=== PATIENT | male | born 1980 | race Caucasian/White ===

== ENCOUNTER 2022-09-10 10:54 | Outpatient (CLI) | payer OTHER, SELFPAY | END 2022-09-10 10:55 | disposition home or self-care (01) | PROVIDERS: PCP Internal Medicine; Visit Provider Internal Medicine | DX: Z00.00 Encounter for general adult medical examination without abnormal findings (principal); I10 Essential (primary) hypertension; Z13.6 Encounter for screening for cardiovascular disorders | CPT/HCPCS: 80053; 80061 ==

== ENCOUNTER 2023-04-15 07:00 | Outpatient (CLI) | payer OTHER, SELFPAY ==
--- NOTE | 2023-04-15 07:15 | CRLHL7_ITS ---
For Patients: As a result of the Century Cures Act, medical imaging exams and procedure reports are released immediately into your electronic medical record. You may view this report before your referring provider. If you have questions, please contact your health care provider. INDICATION: Low back pain. Left leg/hip pain. TECHNIQUE : Lumbar spine MRI without contrast. The following sequences were obtained: Sagittal T1, T2 weighted and STIR sequences. Axial T1 and T2 weighted sequences. COMPARISON: None. FINDINGS : Five lumbar type vertebral bodies, with the last fully formed disc space designated as L5-S1. Normal lumbar lordotic curve. No recent compression fracture or marrow replacing process. Lower cord/conus signal is normal. The conus terminates at a normal location. No intradural lesion. No extraspinal soft tissue abnormalities. Discs/Endplates: L5-S1 disc desiccation. The remaining discs are within normal limits. Findings at individual levels as follows: T11-12: Trace anterolisthesis. Bilateral low-grade facet arthrosis. No spinal canal or neural foraminal stenosis. T12-L1: No spinal canal or neural foraminal stenosis. L1-2: No spinal canal or neural foraminal stenosis. L2-3: Minimal disc bulge. No spinal canal or neural foraminal stenosis. L3-4: Minimal disc bulge. No spinal canal or neural foraminal stenosis. L4-5: Mild disc bulge and low-grade bilateral facet arthrosis. No spinal canal or neural foraminal stenosis. L5-S1: 4 millimeters anterolisthesis. Superior disc unroofing and superimposed small left central protrusion with annular fissure. High-grade bilateral facet arthrosis with a large associated synovial cyst protruding into the left subarticular recess and impinging the traversing left S1 nerve root. It measures up to 7 x 10 millimeters in axial plane and 11 millimeters in craniocaudal plane. Mild left and moderate right oblique neural foraminal stenosis. Overall mild spinal canal stenosis. Diffuse bone marrow edema throughout the left-sided L5 posterior elements and sacrum, consistent with active degenerative inflammation. Imaged SI joints: Minimal arthrosis. Imaged sacrum: Within normal limits. IMPRESSION: 1. At L5-S1, mild grade 1 anterolisthesis and high-grade bilateral facet arthrosis. Left-sided large synovial cyst protruding into the subarticular recess impinges the traversing left S1 nerve root. Diffuse bone marrow edema throughout the left-sided L5 posterior elements and sacrum, consistent with active degenerative inflammation. 2. Minor spondylosis elsewhere without significant spinal canal/neural foraminal stenosis or neural impingement. Dictated by Tanvir Amato MD @ 04/15/2023 10:48:43 AM (Electronically Signed)
== END 2023-04-15 07:01 | disposition home or self-care (01) ==
LOC: MRI 07:01
PROVIDERS: PCP Internal Medicine; Visit Provider Internal Medicine
DX: M54.50 Low back pain, unspecified (principal); M51.26 Other intervertebral disc displacement, lumbar region; M47.896 Other spondylosis, lumbar region; M25.552 Pain in left hip; M79.605 Pain in left leg; M54.30 Sciatica, unspecified side
CPT/HCPCS: 72148

== ENCOUNTER 2023-05-03 01:19 | Emergency (ER) | payer OTHER, SELFPAY ==
[2023-05-03 01:32] VITALS: BP 180/123; PULSE 69; RESP 20; TEMP 36.3; O2SAT 99
--- NOTE | 2023-05-03 01:49 | ED_ITS ---
HPI - Back Pain/Injury General Chief Complaint: Back Injury/Pain Stated Complaint: sciatica pain Time Seen by Provider: 05/03/23 01:28 History of Present Illness HPI Narrative: Patient is a 42-year-old gentleman was seen in the clinic in the past with severe back pain. I did do an MRI and he does have significant degeneration with S1 nerve impingement. I sent him to Sports Medicine they are trying 6 weeks of conservative therapy however the patient is having refractory symptoms although he is on [place] plus anti-inflammatories plus symptomatic treatment. He has left-sided radiculopathy no bowel or bladder symptoms no fevers no chills. Patient states the pain is so severe that he cannot get comfortable and is miserable. The pain is in the low back with radiation on the left leg. It is sharp. Related Data Previous Rx's Medication Instructions Recorded lansoprazole 30 mg capsule,delayed 30 mg PO QDAY gerd #90 caps 03/03/23 release amlodipine 5 mg tablet (Norvasc) 5 mg PO QDAY Hypertension #30 tabs 04/02/23 prednisone 20 mg tablet 20 mg PO BID Sciatica #10 tabs 04/15/23 hydrocodone 5 mg-acetaminophen 325 1 tab PO Q8H PRN pain #30 tabs 04/18/23 mg tablet methylphenidate HCl 54 mg 54 mg PO QAM ADHD #30 tabs 04/28/23 tablet,extended release 24 hr Allergies Allergy/AdvReac Type Severity Reaction Status Date / Time No Known Allergies Allergy Unknown Unknown Verified 04/02/23 12:41 Review of Systems Status of ROS: Reports: 10 or more systems reviewed and unremarkable except as noted in History and below [facility] Medical History Sciatica ?M54.30 - Sciatica, unspecified side (ICD-10) Bronchitis ?J40 - Bronchitis, not specified as acute or chronic (ICD-10) Surgical History History of appendectomy ?Z90.49 - Acquired absence of other specified parts of digestive tract (ICD- 10) Family History Other Colon cancer Social History Smoking Status: Current some day smoker What tobacco products do you use: cigarettes Do you use any of these nicotine containing products: None Second hand tobacco smoke exposure: No Non-prescribed substance use: denies use Little interest or pleasure in doing things: more than half the days Feeling down, depressed, or hopeless: several days service: No Exam Narrative: Exam Narrative: EXAM GENERAL: Patient appears very uncomfortable EYES: No scleral icterus. LYMPH: No supraclavicular or cervical lymphadenopathy. SKIN: Visible skin seen during exam normal or with benign process only. EXT: No dependent lower extremity pedal edema. HEART: Regular rate and rhythm with no murmurs, rubs, or gallops. LUNGS: Clear to auscultation bilaterally with no crackles or wheezes. ABD: Soft, non tender, non distended. PSYCH: Good eye contact, speech is not pressured. Const: Vital Signs, click to edit/add: Vital Signs - 24 hr 05/03/23 01:32 Temperature 97.4 F L Pulse Rate [Left P ulse Oximeter] 69 Respiratory Rate 20 Blood Pressure [Ri ght Upper Arm] 180/123 H Pulse Oximetry 99 Oxygen Delivery Me thod Room Air Course Course ED Course: Patient seen examined. Outpatient course reviewed. Vital Signs Vital signs: Initial Vital Signs Temperature 97.4 F L 05/03/23 01:32 Temperature Source Temporal Artery Scan 05/03/23 01:32 Pulse Rate 69 05/03/23 01:32 Pulse Rhythm Regular 05/03/23 01:32 Respiratory Rate 20 05/03/23 01:32 Blood Pressure 180/123 H 05/03/23 01:32 Blood Pressure Mean 142 H 05/03/23 01:32 Blood Pressure Position Supine 05/03/23 01:32 Pulse Oximetry 99 05/03/23 01:32 Oxygen Delivery Method Room Air 05/03/23 01:32 Vital Signs Temperature 97.4 F L 05/03/23 01:32 Pulse Rate 69 05/03/23 01:32 Respiratory Rate 20 05/03/23 01:32 Blood Pressure 180/123 H 05/03/23 01:32 Pulse Oximetry 99 05/03/23 01:32 Oxygen Delivery Method Room Air 05/03/23 01:32 Temperature 97.4 F L 05/03/23 01:32 Pulse Rate 69 05/03/23 01:32 Respiratory Rate 20 05/03/23 01:32 Blood Pressure 180/123 H 05/03/23 01:32 Pulse Oximetry 99 05/03/23 01:32 Oxygen Delivery Method Room Air 05/03/23 01:32 MDM - Back Pain/Injury MDM Narrative Medical decision making narrative: As the patient is my primary care patient I did prescribe oxycodone in the short term over the weekend try to get him comfortable. On Friday will plan to get him set up a [facility] is I do think we are failing conservative treatment. I have considered other etiologies such as muscle sprain strain fracture abscess neuro degenerative disease. Discharge Plan Discharge Clinical Impression: Sciatica Patient Disposition: Home, Self-Care Condition: Stable Instructions: Sciatica (ED) Additional Instructions: Replace [place] with oxycodone Continue with the remainder of your medications and treatment I will call you on Friday and will make a plan to get you in to [facility] Activity Level: No Restrictions Discharge Diet: Regular Prescriptions: No Action amlodipine [Norvasc] 5 mg tablet 5 mg PO QDAY Qty: 30 3RF lansoprazole 30 mg capsule,delayed release(DR/EC) 30 mg PO QDAY Qty: 90 1RF prednisone 20 mg tablet 20 mg PO BID Qty: 10 0RF hydrocodone-acetaminophen 5-325 mg tablet 1 tab PO Q8H PRN (Reason: pain) Qty: 30 0RF methylphenidate HCl 54 mg tablet extended release 24hr 54 mg PO QAM Qty: 30 0RF Follow Up/Referrals: Vernon Castro MD [Primary Care Provider] - Stand Alone Forms: [employer] Info Instructions
== END 2023-05-03 02:00 | disposition home or self-care (01) ==
PROVIDERS: Emergency Provider Internal Medicine; PCP Internal Medicine
DX: M54.32 Sciatica, left side (principal)
CPT/HCPCS: 99283

== ENCOUNTER 2023-05-05 11:17 | Emergency (ER) | payer OTHER, SELFPAY ==
[2023-05-05 11:30] VITALS: BP 163/124; BP 166/127; PULSE 90; RESP 20; TEMP 36.9; O2SAT 96
--- NOTE | 2023-05-05 14:50 | ED_ITS ---
HPI - Back Pain/Injury General Chief Complaint: Back Injury/Pain Stated Complaint: right side sciatic pain Time Seen by Provider: 05/05/23 14:35 History of Present Illness HPI Narrative: This 42-year-old male comes in with severe low back pain radiating down his left leg. He has been seen recently regarding these same symptoms and did have an MRI a few days ago. This showed some impingement of nerves and apparently there is a cyst in his spinal area. Arrangements today were made for a follow-up appointment with [facility] and this will occur in 3 days. The patient comes in because of severe pain despite taking some pain medicines. He is not taking an anti-inflammatory medicine but has taken some oxycodone tablets without much relief. He also is taking gabapentin. He denies having any bowel or bladder changes and does not report any saddle anesthesia. Related Data Previous Rx's Medication Instructions Recorded lansoprazole 30 mg capsule,delayed 30 mg PO QDAY gerd #90 caps 03/03/23 release amlodipine 5 mg tablet (Norvasc) 5 mg PO QDAY Hypertension #30 tabs 04/02/23 prednisone 20 mg tablet 20 mg PO BID Sciatica #10 tabs 04/15/23 hydrocodone 5 mg-acetaminophen 325 1 tab PO Q8H PRN pain #30 tabs 04/18/23 mg tablet methylphenidate HCl 54 mg 54 mg PO QAM ADHD #30 tabs 04/28/23 tablet,extended release 24 hr cyclobenzaprine 10 mg tablet 10 mg PO TID #15 tabs 05/05/23 hydrocodone 5 mg-acetaminophen 325 1 tab PO Q4-6H PRN pain #24 tabs 05/05/23 mg tablet ketorolac 10 mg tablet 10 mg PO Q8H 5 days #15 tabs 05/05/23 methylprednisolone 4 mg tablets in See Rx Instructions PO .COMPLEX 05/05/23 a dose pack (Medrol (Efren)) #21 ea oxycodone 5 mg tablet 5 mg PO Q6H PRN pain #30 tabs 05/05/23 Allergies Allergy/AdvReac Type Severity Reaction Status Date / Time No Known Allergies Allergy Unknown Unknown Verified 04/02/23 12:41 Review of Systems Status of ROS: Reports: 10 or more systems reviewed and unremarkable except as noted in History and below Narrative: Constitutional: No fevers, no weight gain or loss. Eyes: No discharge. No vision changes. HENT: No congestion, no sore throat, no ear pain. Cardiovascular: No chest pain, no palpitations. Respiratory: No shortness of breath, no wheezes, no cough. Gastrointestinal: No abdominal pain, no vomiting, no diarrhea. Genitourinary: No dysuria, no hematuria. Musculoskeletal: Low back pain with radiating down the left leg. Skin: No rashes, no pruritis. Neurological: No dizziness, weakness, sensory change, speech change. Endo/Heme/Allergies: No bruising or bleeding. No polydipsia. Pysch: no suicidality, no anxiety, no insomnia. All other systems reviewed and are negative. [facility] Medical History Sciatica ?M54.30 - Sciatica, unspecified side (ICD-10) Bronchitis ?J40 - Bronchitis, not specified as acute or chronic (ICD-10) Surgical History History of appendectomy ?Z90.49 - Acquired absence of other specified parts of digestive tract (ICD- 10) Family History Other Colon cancer Social History Smoking Status: Current some day smoker What tobacco products do you use: cigarettes Do you use any of these nicotine containing products: None Second hand tobacco smoke exposure: No Non-prescribed substance use: denies use Little interest or pleasure in doing things: more than half the days Feeling down, depressed, or hopeless: several days service: No Exam Narrative: Exam Narrative: Constitutional: Well-developed, well-nourished, no acute distress. HEENT: Normocephalic, atraumatic. Neck: Normal range of motion. Nontender. Supple. Heart: Regular. No murmurs. Normal rate. Intact distal pulses. Lungs: Clear to auscultation. No chest discomfort. No wheezes, rhonchi, or rales. Abdomen: Normal bowel sounds. Nontender. No rebound tenderness. Genitalia: Deferred. Back: No midline tenderness. Normal range of motion. Extremities: No injury. Pain from the low back radiating down the left leg. Range of motion is intact. Skin: Intact. No rash. Warm. No erythema or pallor. Neurologic: No altered sensation. No weakness. Alert and oriented. Psychiatric: No suicidality. No anxiety or depression. No insomnia. Nursing notes and vitals signs are reviewed. Const: Vital Signs, click to edit/add: Vital Signs - 24 hr 05/05/23 11:30 Temperature 98.4 F Pulse Rate [Pulse Oximeter] 90 Respiratory Rate 20 Blood Pressure [Le ft Upper Arm] 163/124 H Blood Pressure [Ri ght Upper Arm] 166/127 H Pulse Oximetry 96 Oxygen Delivery Me thod Room Air Course Vital Signs Vital signs: Initial Vital Signs Temperature 98.4 F 05/05/23 11:30 Temperature Source Temporal Artery Scan 05/05/23 11:30 Pulse Rate 90 05/05/23 11:30 Pulse Rhythm Regular 05/05/23 11:30 Respiratory Rate 20 05/05/23 11:30 Blood Pressure 166/127 H 05/05/23 11:30 Blood Pressure Mean 140 H 05/05/23 11:30 Blood Pressure Position Sitting 05/05/23 11:30 Pulse Oximetry 96 05/05/23 11:30 Oxygen Delivery Method Room Air 05/05/23 11:30 Vital Signs Temperature 98.4 F 05/05/23 11:30 Pulse Rate 90 05/05/23 11:30 Respiratory Rate 20 05/05/23 11:30 Blood Pressure 166/127 H 05/05/23 11:30 Pulse Oximetry 96 05/05/23 11:30 Oxygen Delivery Method Room Air 05/05/23 11:30 Temperature 98.4 F 05/05/23 11:30 Pulse Rate 90 05/05/23 11:30 Respiratory Rate 20 05/05/23 11:30 Blood Pressure 166/127 H 05/05/23 11:30 Pulse Oximetry 96 05/05/23 11:30 Oxygen Delivery Method Room Air 05/05/23 11:30 MDM - Back Pain/Injury MDM Narrative Medical decision making narrative: This patient has a lumbar radiculopathy and MRI is showing evidence also of a cyst in the spinal area. He has a follow-up appointment with a spine clinic in 3 days. He does not have signs or symptoms of cauda equina syndrome and has not had any recent injury event or strenuous activity that mandates repeat studying today. The patient did receive an intramuscular injection of morphine 10 mg and prescriptions are provided for [place], Toradol, Medrol Dosepak, and Flexeril. I did describe signs and symptoms that would indicate a need for return and re- evaluation. Discharge Plan Discharge Clinical Impression: Lumbar radiculopathy Patient Disposition: Home, Self-Care Condition: Unchanged Additional Instructions: Take medications as needed and directed. Increase activity as tolerated. Follow up with Spine Clinic as scheduled or return if worsening. Prescriptions: New cyclobenzaprine 10 mg tablet 10 mg PO TID Qty: 15 0RF hydrocodone-acetaminophen 5-325 mg tablet 1 tab PO Q4-6H PRN (Reason: pain) Qty: 24 0RF ketorolac 10 mg tablet 10 mg PO Q8H 5 Days Qty: 15 0RF methylprednisolone [Medrol (Efren)] 4 mg tablets,dose pack See Rx Instructions .ROUTE .COMPLEX Qty: 21 0RF Rx Instructions: orally per package directions No Action amlodipine [Norvasc] 5 mg tablet 5 mg PO QDAY Qty: 30 3RF lansoprazole 30 mg capsule,delayed release(DR/EC) 30 mg PO QDAY Qty: 90 1RF prednisone 20 mg tablet 20 mg PO BID Qty: 10 0RF hydrocodone-acetaminophen 5-325 mg tablet 1 tab PO Q8H PRN (Reason: pain) Qty: 30 0RF methylphenidate HCl 54 mg tablet extended release 24hr 54 mg PO QAM Qty: 30 0RF oxycodone 5 mg tablet 5 mg PO Q6H PRN (Reason: pain) Qty: 30 0RF Follow Up/Referrals: Vernon Castro MD [Primary Care Provider] - Stand Alone Forms: [email or web address] Info Instructions
== END 2023-05-05 15:08 | disposition home or self-care (01) ==
LOC: ED 15:01
PROVIDERS: Emergency Provider Emergency Medicine Emergency Medical Services; PCP Internal Medicine
DX: M54.16 Radiculopathy, lumbar region (principal)
CPT/HCPCS: 99283; 99284

== ENCOUNTER 2023-07-11 15:56 | Outpatient (CLI) | payer BC, SELFPAY ==
--- OUTSIDE RECORDS SUMMARY | 2023-07-11 16:00 | XMS_ITS | Clinical Summary ---
Author Name Unknown Organization [facility] Address [place], [place] [address] Care Team Providers Care Electrical Installation Supervisor Name Role Phone Vernon Castro MD Primary Care Provider Allergies No known active allergies Medications Medication Sig Dispensed Refills Start Date End Date Status methylphenidate HCl 54 mg Extended-Release tablet Take 54 mg by mouth once daily. 0 04/28/2023 Active lansoprazole (PREVACID) 30 mg capsule Take 30 mg by mouth once daily before a meal. 0 03/03/2023 Active amLODIPine (NORVASC) 5 mg tablet Take 5 mg by mouth once daily. 0 04/02/2023 Active gabapentin (NEURONTIN) 100 mg capsuleIndications:DD D (degenerative disc disease), lumbar,Low back pain radiating to left leg Take 2 caps at night of 1 week, then increase to 3 caps(300mg) at night. 90 Capsule 2 04/29/2023 Active HYDROcodone-acetamino phen (5-325 mg/tablet)Indications :Lumbar disc herniation with radiculopathy Take 1 Tablet by mouth every 8 hours. 20 Tablet 0 04/30/2023 Active Active Problems Problem Noted Date Diagnosed Date Essential hypertension 04/29/2023 Attention deficit hyperactiv ity disorder (ADHD), predominantly inattentive type 04/29/2023 Chronic GERD 04/29/2023 Encounters Date Type Department Care Team Description 05/08/2023 1:55 PM SMALL PARTS SHAPER OPERATOR - 05/08/2023 11:59 PM SMALL PARTS SHAPER OPERATOR Hospital Encounter [facility] [address] [place] [address] Karis Ozuna PA Spinal stenosis, lumbar region with neurogenic claudication 05/08/2023 9:05 AM SMALL PARTS SHAPER OPERATOR Ancillary Procedure [facility] [address] [place] [address] 05/08/2023 Travel 05/06/2023 Orders Only [facility] [address] [place] [address] Karis Ozuna PA <No scans attached> 05/06/2023 Orders Only [facility] [address] [place] [address] Linda Dean MD <No scans attached> 04/30/[address] [facility] [address] [place] [address] Fuad Mendez MD Refill Request (HYDROcodone-acetaminop hen (5-325 mg/tablet)) 04/29/2023 1:25 PM SMALL PARTS SHAPER OPERATOR Office Visit [facility] [address] [place] [address] Fuad Mendez MD Musculoskeletal Problem (Consultation for Hip pain & Sciatica/For the past year LEFT foot numbness, now having a cramping feeling in LEFT backside of leg. /Having severe pain, gets nauseous. ) 04/29/2023 Travel 04/15/2023 Orders Only [facility] Scanner 1 scan: (1-Ord) [place], LUMBER SPINE WO CON, 04/15/2023 from Last 3 Months Family History Medical History Relation Name Comments Alcohol/Drug Father alcohol in [facility] er and grandfather Heart Disease Father in his 60s Stroke Father Relation Name Status Comments Father Social History Tobacco Use Types Packs/Day Years Used Date Smoking Tobacco: Every Day Cigarettes Tobacco Cessation:Ready to Q uit: Not Asked; Counseling Given: Not Answered Comments:Smokes half pack per day since age 16. Alcohol Use Standard Drinks/Week Comments Yes 0 (1 standard drink = 0.6 oz pur e alcohol) 12 pack per week Social Connections Answer Date Recorded Frequency of Communication with Friends and Fami ly Not on file 04/29/2023 Sex and Gender Information Value Date Recorded Sex Assigned at Not on file Gender Identity Not on file Sexual Orientation Not on file Obstetrics History Last Filed Vital Signs Vital Sign Reading Time Taken Comments Blood Pressure 173/127 04/29/2023 1:40 PM SMALL PARTS SHAPER OPERATOR recheck BP Pulse 97 04/29/2023 1:40 PM SMALL PARTS SHAPER OPERATOR Temperature - - Respiratory Rate - - Oxygen Saturation 97% 04/29/2023 1:3 8 PM SMALL PARTS SHAPER OPERATOR Inhaled Oxygen Concentration - - Weight 96.1 kg (211 lb 14.4 oz) 007 3:37 PM SMALL PARTS SHAPER OPERATOR Height 180 cm (5' 10.87) 04/23/2007 3: 37 PM SMALL PARTS SHAPER OPERATOR Body Mass Index 29.67 04/23/2007 3:37 PM SMALL PARTS SHAPER OPERATOR Plan of Treatment Health Maintenance Due Date Last Done Comments Pneumococcal series for age 6-64 (1 of 2 - PCV) 1984 Tdap 1989 Depression screening for age 12+ 1990 HIV for age 15-65 1993 BMI (ht and wt on same day) for age 18+ 1996 Hepatitis C screening for age 18-79 1996 Tetanus booster 1998 COVID-19 vaccine series (2022- season) 2023 06/29/2021, 05/28/2021 Influenza for age 9-49 02/07/2023 Colonoscopy through age 75 2023 Lipids for age 45-75 2023 Procedures Procedure Name Priority Date/Time Associated Diagnosis Comments XR INJ FACET JOINT LUMBAR 1 LEVEL LEFT Routine 05/08/2023 3:14 PM SMALL PARTS SHAPER OPERATOR Spinal stenosis, lumbar region with neurogenic claudication XR INJ EPIDURAL TRANSFORAMINAL LUMBAR 1 LEV LEFT Routine 05/08/2023 2:48 PM SMALL PARTS SHAPER OPERATOR Spinal stenosis, lumbar region with neurogenic claudication XR SPINE LUMBAR MINIMUM 4 VIEWS Routine 05/08/2023 9:07 AM SMALL PARTS SHAPER OPERATOR Low back pain, unspecified back pain laterality, unspecified chronicity, unspecified whether sciatica present SCAN-MRI INTERPRETATION 04/15/2023 12:00 AM SMALL PARTS SHAPER OPERATOR from Last 3 Months Results * XR INJ FACET JOINT LUMBAR 1 LEVEL LEFT (05/08/2023 3:14 PM SMALL PARTS SHAPER OPERATOR) Anatomical Region Laterality Modality LUMBAR SPINE X-Ray Angiograph y Narrative 05/08/2023 4:46 PM SMALL PARTS SHAPER OPERATOR Preoperative diagnosis: Lumbar facet arthropathy with synovial cyst. Postoperative diagnosis: ??Same. Procedure: Fluoroscopically guided, contrast controlled left L5-S1 synovial cyst rupture. Surgeon: Bertin Smith D.O. Complications: None. Estimated blood loss: Less than 1 ml. Anesthesia: Local. Indications: Low back and left leg pain. ??MRI evidence of left L5-S1 facet arthropathy with synovial cyst and left S1 nerve root impingement. Preprocedure pain score: 10/10 Postprocedure pain score: 5/10 Following denial of allergy and review of potential side effects and complications including but not necessarily limited to infection, allergic reaction, local tissue breakdown, nerve injury, paresis, seizure, epidural hematoma, syncope, headache, respiratory or cardiac arrest, and scar formation the patient indicated they understood and agreed to proceed. Written informed consent was obtained and all of the patient??s questions were answered. Procedure: In the prone position following sterile prep and drape of the lumbar region, the left L5-S1 facet was identified fluoroscopically via a left oblique view with caudal tilt. ??The skin over the target area was anesthetized using a 25-gauge 1?? inch needle with 1 ml of 1% Lidocaine. ??A 22-gauge 3?? inch spinal needle was then atraumatically introduced and advanced under fluoroscopic guidance into the left L5-S1 facet joint. ?? Following negative aspiration, injection of approximately 0.5 ml Omnipaque 300 confirmed intra-articular placement without vascular or intrathecal uptake. ??Radiographs were obtained for documentation purposes. ??Additional contrast was then injected under pressure until loss of resistance was detected and flow of contrast was seen within the epidural space. ?? Radiographs were again obtained for documentation purposes. ??1 ml of 0.5% bupivacaine was then injected. ??Following a 1 minute waiting period 0.5 ml of dexamethasone (10 mg/ml) was injected into the joint without complication and the needle was withdrawn. The patient was observed following the procedure and met the discharge criteria before being discharged from the facility. ??They were instructed to call with any questions or concerns they may have regarding their condition. ?? Karis WILSON FLUOROSCOPY * XR INJ EPIDURAL TRANSFORAMINAL LUMBAR 1 LEV LEFT (05/08/2023 2:48 PM SMALL PARTS SHAPER OPERATOR) Anatomical Region Laterality Modality LUMBAR SPINE X-Ray Angiograph y Narrative 05/08/2023 4:41 PM SMALL PARTS SHAPER OPERATOR Preoperative diagnosis: Left lumbosacral radiculopathy. Postoperative diagnosis: ??Same. Procedure: Fluoroscopically guided, contrast controlled left S1 selective nerve root block. Surgeon: Bertin Smith D.O. Complications: None. Estimated blood loss: Less than 1 ml. Anesthesia: Local. Indications: Severe low back and left leg pain. ??MRI evidence of left L5-S1 synovial cyst with left S1 nerve root impingement. Preprocedure pain score: 10/10 Postprocedure pain score: 5/10 Following denial of allergy and review of potential side effects and complications including but not necessarily limited to infection, allergic reaction, local tissue breakdown, nerve injury, paresis, seizure, epidural hematoma, syncope, headache, respiratory or cardiac arrest, and scar formation the patient indicated they understood and agreed to proceed. Written informed consent was obtained and all of the patient??s questions were answered. Procedure: In the prone position following sterile prep and drape of the lumbosacral region, the left S1 neural foramen was identified fluoroscopically via an AP view. ??The skin over the target area was anesthetized using a 25-gauge 1?? needle with 1 ml of 1% Lidocaine. ??A 22-gauge 3?? spinal needle was then atraumatically introduced and advanced under fluoroscopic guidance, alternating between AP, oblique and lateral views through the superolateral aspect of the posterior left S1 neural foramen to the anterior aspect of the sacral canal. Following negative aspiration, injection of approximately 2 ml Omnipaque 300 contrast showed excellent flow, both proximally and distally along the S1 nerve root without vascular or intrathecal uptake. ??Radiographs were obtained for documentation purposes. 2 ml of 0.5% bupivacaine was then injected slowly over time. ??Following a 60 second waiting period 1 ml of dexamethasone (10 mg/ml) was injected without complication and the needle was withdrawn. The patient was observed following the procedure and met the discharge criteria before being discharged from the facility. ??The patient was instructed to follow up per the protocol for their procedure. Karis WILSON FLUOROSCOPY * XR SPINE LUMBAR MINIMUM 4 VIEWS (05/08/2023 9:07 AM SMALL PARTS SHAPER OPERATOR) Anatomical Region Laterality Modality Spine, LUMBAR SPINE Digital Radi ography 05/08/2023 9:07 AM SMALL PARTS SHAPER OPERATOR Impressions 05/08/2023 3:24 PM SMALL PARTS SHAPER OPERATOR No fracture is identified. Mild lower lumbar spine degenerative disc disease, worst at L4-L5 and L5-S1. Moderate to severe lower lumbar spine facet arthropathy. Grade 1 anterolisthesis of L5 on S1, similar in flexion versus extension with questionable slight shift. Narrative 05/08/2023 3:24 PM SMALL PARTS SHAPER OPERATOR For Patients: As a result of the Cures Act, medical imaging exams and procedure reports are released immediately into your electronic medical record. You may view this report before your referring provider. If you have questions, please contact your health care provider. EXAM: XR SPINE LUMBAR MINIMUM 4 VIEWS LOCATION: [facility] DATE: 05/08/2023 INDICATION: Low Back Pain, Unspecified Back Pain Laterality, Unspecified Chronicity, Unspecified Whether Sciatica Present. COMPARISON: MRI 04/15/2023. Procedure Note Dontae Amaya MD - 05/08/2023 For Patients: As a result of the Cures Act, medical imagingexams and procedure reports are released immediately into your electronicmedical record. You may view this report before your referring provider.If you have questions, please contact your health care provider. EXAM: XR SPINE LUMBAR MINIMUM 4 VIEWS LOCATION: [facility] DATE: 05/08/2023 INDICATION: Low Back Pain, Unspecified Back Pain Laterality, UnspecifiedChronicity, Unspecified Whether Sciatica Present. COMPARISON: MRI 04/15/2023. IMPRESSION: No fracture is identified. Mild lower lumbar spine degenerative discdisease, worst at L4-L5 and L5-S1. Moderate to severe lower lumbar spinefacet arthropathy. Grade 1 anterolisthesis of L5 on S1, similar in flexionversus extension with questionable slight shift. Karis WILSON GENERAL RODGER GING * SCAN-MRI INTERPRETATION (04/15/2023 12:00 AM SMALL PARTS SHAPER OPERATOR) Anatomical Region Laterality Modality Other Scanner OTHER from Last 3 Months Care Teams Electrical Installation Supervisor Relationship Specialty Start Date End Date Vernon Castro MD [address] [place] [address] PCP - General Internal Medicine 04/16/23
--- NOTE | 2023-07-11 16:30 | CRLHL7_ITS ---
For Patients: As a result of the Century Cures Act, medical imaging exams and procedure reports are released immediately into your electronic medical record. You may view this report before your referring provider. If you have questions, please contact your health care provider. INDICATION: Low back pain. Spondylolisthesis TECHNIQUE: Noncontrast sagittal and axial T1, T2, and sagittal STIR sequences are provided. No comparisons. FINDINGS: Minimal anterolisthesis of L5 on S1. There is notable edema within the L5-S1 pedicles extending into the facets. The L5 pars interarticularis appear intact. Trace edema seen within the L4 pedicles extending into the L4-5 facets. The overall stature, alignment and intrinsic marrow signal within the remainder of the lumbar spine is within normal limits. Conus is normal. L1-2, L2-3, L3-4: Unremarkable. L4-5: Trivial posterior disc bulge with [id number] bilateral facet arthropathy results in no significant central canal or foraminal narrowing. L5-S1: Severe bilateral facet arthropathy evidence of a 5 millimeter synovial cyst emanating from the left facet narrowing the left lateral recess and resulting in mild contact of the traversing left S1 nerve root. Bony hypertrophy from the facet arthropathy bilaterally results in moderate bilateral foraminal narrowing. Central canal is patent. IMPRESSION: 1. Minimal anterolisthesis of L5 on S1 with evidence of edema within the L5-S1 pedicles. 2. Prominent synovial cyst emanating from the left L5-S1 facet contacting and mildly compressing the traversing left S1 nerve root with moderate bilateral foraminal narrowing. 3. Trace edema within the L4 pedicles extending to L4-5 facets may be due to reactive or advanced degenerative phenomenon. Dictated by Michael Smith MD @ 07/12/2023 9:14:13 AM (Electronically Signed)
== END 2023-07-11 15:57 | disposition home or self-care (01) ==
LOC: MRI 15:58
PROVIDERS: PCP Internal Medicine; Visit Provider Physician Assistant
DX: M54.50 Low back pain, unspecified (principal); M71.38 Other bursal cyst, other site; M43.16 Spondylolisthesis, lumbar region
CPT/HCPCS: 72148

== ENCOUNTER 2023-07-24 08:35 | Outpatient (REF) | payer BC, SELFPAY ==
--- OUTSIDE RECORDS SUMMARY | 2023-07-28 06:28 | XMS_ITS | Clinical Summary ---
Author Name Unknown Organization [facility] Address [place], [place] [address] Care Team Providers Care Dynamite Reclaimer Name Role Phone Vernon Castro MD Primary [...] Department Care Team Description 05/08/2023 1:55 PM ECCLESIASTICAL WORKER - 05/08/2023 11:59 PM ECCLESIASTICAL WORKER Hospital Encounter [facility] [address] [place] [address] Karis Ozuna PA Spinal stenosis, lumbar region with neurogenic claudication 05/08/2023 9:05 AM ECCLESIASTICAL WORKER Ancillary Procedure [facility] [address] [place] [address] 05/08/2023 Travel 05/06/2023 Orders Only [facility] [address] [place] [address] Karis Ozuna PA <No scans attached> 05/06/2023 Orders Only [facility] [address] [place] [address] Linda Dean MD <No scans attached> 04/30/2023 Refill [facility] [address] [place] [address] Fuad Mendez MD Refill Request (HYDROcodone-acetaminop hen (5-325 mg/tablet)) 04/29/2023 1:25 PM ECCLESIASTICAL WORKER Office Visit [facility] [address] [place] [address] Fuad Mendez MD Musculoskeletal Problem (Consultation for Hip pain & Sciatica/For the past year LEFT foot numbness, now having a cramping feeling in LEFT backside of leg. /Having severe pain, gets nauseous. ) 04/29/2023 Travel from Last 3 Months Family History Medical History Relation Name Comments Alcohol/Drug Father alcohol in [facility] er and grandfather Heart Disease Father in [...] Comments Blood Pressure 173/127 04/29/2023 1:40 PM ECCLESIASTICAL WORKER recheck BP Pulse 97 04/29/2023 1:40 PM ECCLESIASTICAL WORKER Temperature - - Respiratory Rate - - Oxygen Saturation 97% 04/29/2023 1:3 8 PM ECCLESIASTICAL WORKER Inhaled Oxygen Concentration - - Weight 96.1 kg (211 lb 14.4 oz) 007 3:37 PM ECCLESIASTICAL WORKER Height 180 cm (5' 10.87) 04/23/2007 3: 37 PM ECCLESIASTICAL WORKER Body Mass Index 29.67 04/23/2007 3:37 PM ECCLESIASTICAL WORKER Plan of Treatment Health Maintenance Due Date [...] 1 LEVEL LEFT Routine 05/08/2023 3:14 PM ECCLESIASTICAL WORKER Spinal stenosis, lumbar region with neurogenic claudication XR INJ EPIDURAL TRANSFORAMINAL LUMBAR 1 LEV LEFT Routine 05/08/2023 2:48 PM ECCLESIASTICAL WORKER Spinal stenosis, lumbar region with neurogenic claudication XR SPINE LUMBAR MINIMUM 4 VIEWS Routine 05/08/2023 9:07 AM ECCLESIASTICAL WORKER Low back pain, unspecified back pain laterality, unspecified chronicity, unspecified whether sciatica present from Last 3 Months Results * XR INJ FACET JOINT LUMBAR 1 LEVEL LEFT (05/08/2023 3:14 PM ECCLESIASTICAL WORKER) Anatomical Region Laterality Modality LUMBAR SPINE X-Ray Angiograph y Narrative 05/08/2023 4:46 PM ECCLESIASTICAL WORKER Preoperative diagnosis: Lumbar facet arthropathy with synovial [...] LUMBAR 1 LEV LEFT (05/08/2023 2:48 PM ECCLESIASTICAL WORKER) Anatomical Region Laterality Modality LUMBAR SPINE X-Ray Angiograph y Narrative 05/08/2023 4:41 PM ECCLESIASTICAL WORKER Preoperative diagnosis: Left lumbosacral radiculopathy. Postoperative diagnosis: [...] per the protocol for their procedure. Karis Ozuna PA FLUOROSCOPY * XR SPINE LUMBAR MINIMUM 4 VIEWS (05/08/2023 9:07 AM ECCLESIASTICAL WORKER) Anatomical Region Laterality Modality Spine, LUMBAR SPINE Digital Radi ography 05/08/2023 9:07 AM ECCLESIASTICAL WORKER Impressions 05/08/2023 3:24 PM ECCLESIASTICAL WORKER No fracture is identified. Mild lower lumbar spine degenerative disc disease, worst at L4-L5 and L5-S1. Moderate to severe lower lumbar spine facet arthropathy. Grade 1 anterolisthesis of L5 on S1, similar in flexion versus extension with questionable slight shift. Narrative 05/08/2023 3:24 PM ECCLESIASTICAL WORKER For Patients: As a result of the Cures Act, medical imaging exams and procedure reports are released immediately into your electronic medical record. You may view this report before your referring provider. If you have questions, please contact your health care provider. EXAM: XR SPINE LUMBAR MINIMUM 4 VIEWS LOCATION: [facility] DATE: 05/08/2023 INDICATION: Low Back Pain, [...] XR SPINE LUMBAR MINIMUM 4 VIEWS LOCATION: [facility] DATE: 05/08/2023 INDICATION: Low Back Pain, Unspecified Back Pain Laterality, UnspecifiedChronicity, Unspecified Whether Sciatica Present. COMPARISON: MRI 04/15/2023. IMPRESSION: No fracture is identified. Mild lower lumbar spine degenerative discdisease, worst at L4-L5 and L5-S1. Moderate to severe lower lumbar spinefacet arthropathy. Grade 1 anterolisthesis of L5 on S1, similar in flexionversus extension with questionable slight shift. Karis MERINO RODGER GING from Last 3 Months Care Teams Dynamite Reclaimer Relationship Specialty Start Date End Date Vernon Castro MD [address] [place] [address] PCP - General Internal Medicine 04/16/23
== END 2023-07-24 08:36 | disposition home or self-care (01) ==
LOC: NFLDREF 08:35
PROVIDERS: PCP Internal Medicine; Referring Provider Internal Medicine; Visit Provider Internal Medicine
DX: Z72.0 Tobacco use (principal)
CPT/HCPCS: 80323

== ENCOUNTER 2023-08-18 08:09 | Outpatient (CLI) | payer BC, SELFPAY | END 2023-08-18 08:10 | disposition home or self-care (01) | PROVIDERS: PCP Internal Medicine; Visit Provider Internal Medicine | DX: I10 Essential (primary) hypertension (principal); Z13.0 Encounter for screening for diseases of the blood and blood-forming organs and certain disorders involving the immune mechanism | CPT/HCPCS: 80048; 85610 ==

== ENCOUNTER 2024-10-27 09:09 | Outpatient (CLI) | payer BC, SELFPAY | END 2024-10-27 09:10 | disposition home or self-care (01) | PROVIDERS: PCP Internal Medicine; Visit Provider Internal Medicine | DX: Z00.01 Encounter for general adult medical examination with abnormal findings (principal); I10 Essential (primary) hypertension; R35.0 Frequency of micturition; Z12.5 Encounter for screening for malignant neoplasm of prostate | CPT/HCPCS: 80053; 80061; G0103 ==

== ENCOUNTER 2025-04-11 08:39 | Outpatient (CLI) | payer BC, SELFPAY ==
--- NOTE | 2025-04-11 09:51 | P.ANES_ITS ---
Anesthesia Charges Start Date/Time Anesthesia Start Date: 04/11/25 Anesthesia Start Time: 09:07 Stop Date/Time Anesthesia Stop Date: 04/11/25 Anesthesia Stop Time: 09:41 Coding CPT Codes CPT Codes: ANES LWR INTST NDSC NOS - 33396 ([id number]) P3 - PATIENT W/SEVERE SYS DISEASE, QK - COMMERCIAL COORDINATOR 2-4 CNCRNT ANES PROC
--- NOTE | 2025-04-11 09:51 | W.ANESCHARGE ---
Anesthesia Charges Start Date/Time Anesthesia Start Date: 04/11/25 Anesthesia Start Time: 09:07 Stop Date/Time Anesthesia Stop Date: 04/11/25 Anesthesia Stop Time: 09:41 Coding CPT Codes CPT Codes: ANES LWR INTST NDSC NOS - 79144 ([id number]) P3 - PATIENT W/SEVERE SYS DISEASE, QK - GLASS BEVELER 2-4 CNCRNT ANES PROC
--- NOTE | 2025-04-11 09:55 | P.ANES_ITS ---
Anesthesia Charges Start Date/Time Anesthesia Start Date: 04/11/25 Anesthesia Start Time: 09:07 Stop Date/Time Anesthesia Stop Date: 04/11/25 Anesthesia Stop Time: 09:41 Coding CPT Codes CPT Codes: ANES LWR INTST NDSC NOS - 26720 ([id number]) QK - [employer] COOK 2-4 CNCRNT ANES PROC, QX - WARE FINISHER SVC W/ MED DIRECTION, P3 - PATIENT W/SEVERE SYS DISEASE
--- NOTE | 2025-04-11 09:55 | W.ANESCHARGE ---
Anesthesia Charges Start Date/Time Anesthesia Start Date: 04/11/25 Anesthesia Start Time: 09:07 Stop Date/Time Anesthesia Stop Date: 04/11/25 Anesthesia Stop Time: 09:41 Coding CPT Codes CPT Codes: ANES LWR INTST NDSC NOS - 88930 ([id number]) QK - HOUSING COUNSELOR 2-4 CNCRNT ANES PROC, QX - NIGHT CLERK SVC W/ MED DIRECTION, P3 - PATIENT W/SEVERE SYS DISEASE
== END 2025-04-11 08:40 | disposition home or self-care (01) ==
LOC: OP CLINIC 08:39
PROVIDERS: PCP Internal Medicine; Visit Provider Internal Medicine
DX: Z12.11 Encounter for screening for malignant neoplasm of colon (principal); D12.8 Benign neoplasm of rectum; D12.5 Benign neoplasm of sigmoid colon; D12.2 Benign neoplasm of ascending colon; K57.30 Diverticulosis of large intestine without perforation or abscess without bleeding
CPT/HCPCS: 00811; 00812; 45380; 45385; 88305; J2704